=== PATIENT | female | born 2000 | race African-American/Black ===

== ENCOUNTER 2021-05-18 23:08 | Emergency (ER) | payer OTHER ==
[~2021-05-18] VITALS: Ht 165.1 cm; Wt 64.4 kg
--- NOTE | ~2021-05-18 | EMS ---
[address] [address] EMS Patient Care Report Name: OLIVERIO DIA Room #: DEP AMY Felix#: [id number] Admission: 05/18/21 Attend Phys: Discharge: 05/19/21 Date of : [birth year] Report #: [id number] THIS REPORT FOR: //name// Report Transmitted: 05/20/2021 13:58 EMS Care Summary [place], [place]/[facility] Incident [id number] @ 05/18/2021 22:17 Incident Location [address] [place] [address] [address] [phone] Patient REBECCA ANGLIN Female, 21 Years 2000 Patient Address [address] [place] [address] [address] [phone] Patient History Asthma, Patient Allergies No known allergies, Patient Medications None Reported, Chief Complaint HI/SI Disposition Transported No Lights/[place] Dispatch Reason Psychiatric Problem/Abnormal Behavior/Suicide Attempt Transported To [facility] Narrative M42 ARRIVED ONCE PD HAD SECURED THE SCENE, TO FIND A PT WITH SI/HI WITH A PLAN. M42 ASSISTED PT TO THE AMBULANCE AND SECURED THEM TO THE SEAT WITH [employer] [employer], [address] [address] EMS Patient Care Report Name: OLIVERIO DIA Room #: DEP ER Elvira#: [id number] Admission: 05/18/21 Attend Phys: Discharge: 05/19/21 Date of : [birth year] Report #: [id number] M42 OBTAINED VITALS AND HISTORY FROM A [facility] PT ENROUT TO THE HOSPITAL, WHERE REPORT AND PT CARE WAS TRANSFERRED. Initial Vitals @23:01P: 77,R: 16,BP: 111/77,Pain: 0/10,GCS: 15,CO: 5,SpO2: 99,Revised Trauma: 12, @22:51P: 86,R: 16,BP: 114/81,Pain: 0/10,GCS: 15,SpO2: 98,Revised Trauma: 12, Assessments @22:53MENTAL:No Abnormalities,SKIN:No Abnormalities,HEENT:Head/Face: No Abnormalities,Eyes: No Abnormalities,Neck/Airway: No Abnormalities,LUNG SOUNDS:General: No Abnormalities,Left Upper: No Abnormalities,Right Upper: No Abnormalities,Left Lower: No Abnormalities,Right Lower: No Abnormalities,ABDOMEN:General: No Abnormalities,Left Upper: No Abnormalities,Right Upper: No Abnormalities,Left Lower: No Abnormalities,Right Lower: No Abnormalities,PELVIS//GI:No Abnormalities,EXTREMITIES:Left Arm: No Abnormalities,Right Arm: No Abnormalities,Left Leg: No Abnormalities,Right Leg: No Abnormalities,PULSE:NEURO:No Abnormalities, Impression Suicidal Ideation Procedures @22:53 BLS Assessment Response: Unchanged Timeline 22:16,Call Received 22:16,Dispatch Notified 22:17,Dispatched 22:18,En Route 22:44,On Scene 22:46,At Patient 22:51,BP: 114/81 M,PULSE: 86,RR: 16 R,SPO2: 98 Ox,ETCO2: ,BG: ,PAIN: 0,GCS: 15, 22:53,BLS Assessment,Response: Unchanged 22:59,Depart Scene 23:01,BP: 111/77 M,PULSE: 77,RR: 16 R,SPO2: 99 Ox,ETCO2: ,BG: ,PAIN: 0,GCS: 15, 23:11,At Destination 23:15,Call Closed Disclaimer v1.1 Copyright 2021 [employer] This EMS Care Summary contains data elements from the applicable legal record (which may be displayed differently). It is designed to provide pertinent information for the following purposes: continuity of care, clinical quality, and state data reporting. The complete legal record is available to ED staff [address] [address] EMS Patient Care Report Name: OLIVERIO DIA Room #: DEP AMY Felix#: [id number] Admission: 05/18/21 Attend Phys: Discharge: 05/19/21 Date of : 99 Report #: [id number] and administrators of the receiving hospital in [employer] Patient Tracker. All data is provided "as is."
[2021-05-19 00:11] LABS: HEMATOCRIT 36.3 % (37.0-47.0); HEMOGLOBIN 12.2 gm/dL (12.0-15.0); MCH 27.9 pg (26.0-34.0); MCHC 33.5 g/dL (28.0-37.0); MCV 83.1 fL (80.0-100.0); RBC 4.37 mil/uL (4.20-5.00); RDW 13.3 % (10.5-14.5); WBC 5.1 thou/uL (4.0-11.0)
[2021-05-19 00:30] LABS: CALCIUM 9.9 mg/dL (8.5-10.1); CREATININE 0.7 mg/dL (0.6-1.0); POTASSIUM 3.7 mmol/L (3.5-5.1)
[2021-05-19 00:34] LABS: AMP/METHAMP Negative (Negative); BARBITURATES Negative (Negative); BENZODIAZEPINES Negative (Negative); COCAINE Negative (Negative); METHADONE Negative (Negative); OPIATES Negative (Negative); PCP Negative (Negative)
[2021-05-19 19:58] VITALS: BP 105/68
== END 2021-05-19 19:45 | disposition home or self-care (01) ==
LOC: ER 23:08
PROVIDERS: Emergency Medicine
DX: F32.9 Major depressive disorder, single episode, unspecified (principal); Z20.822 Contact with and (suspected) exposure to COVID-19; R45.851 Suicidal ideations; F41.9 Anxiety disorder, unspecified